=== PATIENT | male | born 1950 | race Two or more races ===

== ENCOUNTER 2019-08-14 22:50 | Inpatient (IN) | payer MEDICARE, OTHER ==
[~2019-08-14] VITALS: Ht 180.3 cm; Wt 85.2 kg
[2019-08-14] MEDS ORDERED: NITROGLYCERIN 0.4 MG SL TAB SL ONE (23:15)
[2019-08-14] MEDS ORDERED: MORPHINE SULFATE 4 MG/ML SYR/VIAL IV ONE (23:15)
[2019-08-14] MEDS ORDERED: ASPirin-EC 325mg tab PO ONE (23:15)
[2019-08-15 01:11] LABS: Basophils # (auto) 0.1 uL; Basophils % (auto) 0.6 % (0.0-2.0); Eosinophils # (auto) 0.1 uL; Eosinophils % (auto) 1.3 % (0.0-7.0); Hemoglobin 13.7 g/dL (13.5-17.5); Lymphocytes # (auto) 0.8 uL; Lymphocytes % (auto) 7.8 % (10.0-50.0); Mean Corpuscular Hemoglobin 31.8 pg (28.0-32.0); Mean Corpuscular Hgb Conc. 35.2 g/dL (32.0-36.0); Mean Corpuscular Volume 90.3 fL (80.0-100.0); Monocytes # (auto) 0.6 uL; Monocytes % (auto) 5.9 % (0.0-12.0); Neutrophils # (auto) 8.1 uL; Neutrophils % (auto) 84.4 % (37.0-80.0); Platelet Count (auto) 179 10^3/uL (140-450); Red Blood Cells 4.32 10^6/uL (4.5-5.90); White Blood Cell 9.6 10^3/uL (4.4-10.8)
[2019-08-15 01:18] LABS: Albumin 3.9 g/dL (3.4-5.0); Calcium 8.7 mg/dL (8.5-10.1); INR 0.96 (0.9-1.15); Magnesium 1.9 mg/dL (1.6-2.6); Partial Thromboplastin Time 25.8 sec (23.64-32.05)
[2019-08-15 01:21] LABS: BUN/Creatinine Ratio 18.3; Bilirubin, Total 0.3 mg/dL (0.2-1.0); Total Protein 8.2 g/dL (6.4-8.2)
[2019-08-15 02:33] LABS: Urine Bacteria NONE SEEN /hpf (None Seen); Urine Blood Negative /uL (Negative); Urine Specific Gravity 1.009 (1.001-1.035); Urine WBC 1 /hpf (0 - 3)
[2019-08-15] MEDS ORDERED: HEPARIN DRIP/D5W 100UNITS/ML 250 ML IV SCH (03:22)
[2019-08-15] MEDS ORDERED: HEPARIN SODIUM (PORCINE) 5000 UNITS/ML 1ML VIAL IV ONE ×3 (03:30)
[2019-08-15] MEDS ORDERED: HEPARIN DRIP/D5W 100UNITS/ML 250 ML IV ONE (03:39)
[2019-08-15] MEDS ORDERED: HYDROcodone-ACET 5/325MG TAB PO PRN (05:15)
[2019-08-15] MEDS ORDERED: DEXTROSE (50%) 50ML SYRG IV PRN (05:15)
[2019-08-15] MEDS ORDERED: ONDANSETRON HCL 4 MG/2 ML VIAL IV PRN (05:15)
[2019-08-15] MEDS ORDERED: MORPHINE SULF INJ 2 MG/ML SYRINGE 1ML IV PRN (05:15)
[2019-08-15] MEDS ORDERED: NITROGLYCERIN 0.4 MG SL TAB SL PRN (05:15)
[2019-08-15] MEDS ORDERED: ACETAMINOPHEN 500 MG TAB PO PRN (05:15)
[2019-08-15] MEDS: InsuLIN REG 1unit/0.01ml Soln (100units/ml) SC SCH ×4 (08:29→22:15)
[2019-08-15] MEDS: ACCU-CHEK COMFORT CURVE STRIP VI SCH ×4 (08:29→21:45)
[2019-08-15] MEDS ORDERED: CLOPIDOGREL BISULFATE 75 MG TAB PO ONE (09:15)
[2019-08-15] MEDS ORDERED: CLOPIDOGREL 300 MG TAB PO ONE (09:45)
[2019-08-15] MEDS ORDERED: fentaNYL CITRATE 100 MCG/2 ML VL ONE (10:00)
[2019-08-15] MEDS: ASPirin-EC 81 mg tab PO SCH (10:00)
[2019-08-15] MEDS ORDERED: ANGIOMAX 250 MG VIAL IV ONE (10:00)
[2019-08-15] MEDS ORDERED: MIDAZOLAM HCL 1MG/1ML-2 ML VIAL ONE (10:00)
[2019-08-15] MEDS ORDERED: SODIUM CHL 0.9% 50 ML ONE (10:00)
[2019-08-15] MEDS ORDERED: LIDOCAINE 2%HCL (LOCAL ANESTH.) INJ 20ML MDV ONE (10:00)
[2019-08-15] MEDS ORDERED: ATROPINE SULF 1 MG/10ml SYR ONE (10:02)
[2019-08-15] MEDS ORDERED: EPINEPHrine HCL 1 MG/10 ML SYRG ONE (10:02)
[2019-08-15] MEDS ORDERED: IOHEXOL 350 MG/ML 100ML IJ ONE (10:10)
[2019-08-15 10:15] LABS: Partial Thromboplastin Time 47.2 sec (23.64-32.05)
[2019-08-15] MEDS ORDERED: diphenhdrAMINE HCL 50 MG/1 ML VL IV ONE (10:15)
[2019-08-15] MEDS ORDERED: methylPREDNISolone SOD SUCC 125 MG/2 ML VL IV ONE (10:15)
[2019-08-15] MEDS ORDERED: methylPREDNISolone SOD SUCC 125 MG/2 ML VL ONE (10:53)
[2019-08-15] MEDS ORDERED: diphenhdrAMINE HCL 50 MG/1 ML VL ONE (10:54)
[2019-08-15] MEDS ORDERED: FAMOTIDINE (10MG/ML) 2ML VL IV ONE (10:54)
[2019-08-15] MEDS ORDERED: ONDANSETRON HCL 4 MG/2 ML VIAL ONE (10:58)
[2019-08-15] MEDS ORDERED: hydrALAZINE HCL 20 MG/ML VL ONE (11:53)
--- NOTE | 2019-08-15 13:08 | NUR ---
Opening Note Assumed care of patient, he is A & O x4, arrived s/p slabber, patient is laying flat at this time, patient educated regarding up time post procedure is 1430. He has a dressing to the right groin, it is clean, dry and intact, area surrounding dressing is soft no s/s of hematoma. Pulses to the R and L dorsalis pedis, 2+. Patient c/o chest pain 6/10 and headache 6/10. Renee catheter is in place, patent and draining. IV fluids NS at 50 ml/hr to the right forearm. Family is at bedside. POC discussed with patient. Bed is in low, locked position, call light within reach, bed alarm on. Will continue to monitor Q1h and PRN.
--- NOTE | 2019-08-15 13:10 | NUR ---
Patient cardio monitor Tele box 14, sinus rhythm at 74
[2019-08-15 13:27] VITALS: BP 142/73
--- NOTE | 2019-08-15 13:30 | NUR ---
Spoke to Victor Hugo Darnell Regarding patient chest pain s/p [facility], was ordered to give morphine for pain and daily meds, nitro patch, and monitor, if pain persists or gets worse to notify Dr. Martino. Patient has a dime size drop of blood to the R groin, circled, no s/s of hematoma, area surrounding insertion site is soft. Will continue to monitor Q1h and PRN.
[2019-08-15] MEDS: FAMOTIDINE 20 MG TAB PO SCH (14:26)
[2019-08-15] MEDS: LISINOPRIL 10 MG TAB PO SCH (14:28)
[2019-08-15] MEDS: METOPROLOL TARTRATE 25 MG TAB PO SCH ×2 (14:28→21:45)
[2019-08-15] MEDS: NITROGLYCERIN 0.4MG/HR TOPICAL PATCH TD SCH (14:30)
[2019-08-15] MEDS: MORPHINE SULF INJ 2 MG/ML SYRINGE 1ML IV PRN ×2 (14:31→21:44)
[2019-08-15] MEDS ORDERED: FLUO0.054 TOP (15:04)
[2019-08-15] MEDS ORDERED: [UNRECOGNIZED DRUG - CODE] OR (15:04)
[2019-08-15] MEDS ORDERED: B-COCAP4 OR (15:04)
[2019-08-15] MEDS ORDERED: ACE325T PO (15:04)
[2019-08-15] MEDS ORDERED: CLOT1CRE13 TOP (15:04)
[2019-08-15] MEDS ORDERED: DOCU100T15 PO (15:04)
[2019-08-15] MEDS ORDERED: METF-370 PO (15:04)
[2019-08-15] MEDS ORDERED: ARTISOL13 EACHEYE (15:04)
[2019-08-15] MEDS ORDERED: LAMO100T44 PO (15:04)
[2019-08-15] MEDS ORDERED: PRAV20TA3 PO (15:04)
[2019-08-15] MEDS ORDERED: LACTCAP20 OR (15:04)
[2019-08-15] MEDS ORDERED: MULTCAP45 PO (15:04)
[2019-08-15] MEDS ORDERED: ISOS30TA4 PO (15:04)
[2019-08-15] MEDS ORDERED: [UNRECOGNIZED DRUG - CODE] XX (15:04)
[2019-08-15] MEDS ORDERED: TRAM50TA2 PO (15:04)
[2019-08-15] MEDS ORDERED: AML5T PO (15:04)
[2019-08-15] MEDS ORDERED: CALC-509 PO (15:04)
[2019-08-15] MEDS ORDERED: FINA5TAB4 PO (15:04)
[2019-08-15] MEDS ORDERED: OMEG100062 PO (15:04)
[2019-08-15] MEDS ORDERED: FLUO0.05 EX (15:04)
[2019-08-15] MEDS ORDERED: METO25TA5 PO (15:04)
[2019-08-15] MEDS ORDERED: CARB6.5S27 EACH EAR (15:04)
[2019-08-15] MEDS ORDERED: LEVO137T3 PO (15:04)
[2019-08-15] MEDS ORDERED: FLUO-125 PO (15:04)
[2019-08-15] MEDS ORDERED: MODA200T50 PO (15:04)
[2019-08-15] MEDS ORDERED: TAMS0.4C36 PO (15:04)
[2019-08-15] MEDS ORDERED: CHOL20007 PO (15:04)
[2019-08-15 15:33] LABS: INR 1.06 (0.9-1.15); Partial Thromboplastin Time 38.8 sec (23.64-32.05)
--- NOTE | 2019-08-15 16:36 | NUR ---
Dr. Moody at bedside. Patient has a quarter size red blood to the right groin, area surrounding site is soft, no s/s of active bleeding or hematoma. Will continue to monitor Q1h and PRN.
[2019-08-15] MEDS ORDERED: LORazepam 2MG/ML-1ML VIAL IV PRN (16:45)
[2019-08-15 17:00] VITALS: BP 95/53
[2019-08-15 18:00] VITALS: BP 110/56
[2019-08-15] MEDS: TAMSULOSIN HYDROCHLORIDE 0.4 MG CAP PO SCH (18:05)
--- NOTE | 2019-08-15 19:47 | NUR ---
OPENING NOTES RECEIVED REPORT FROM DAY SHIFT NURSE, PT IS AWAKE, ALERT AND ORIENTATED X 4 WITH NO S/S OF DISTRESS NOR SOB. NO S/S OF PAIN. RIGHT GROIN INCISION IS INTACT WITH MINIMAL DISCHARGE OF BLOOD, AREA MARKED. BED IS IN LOWEST POSITION AND SIDE RAILS UP X2. BED BRAKES ARE LOCKED AND CALL LIGHT IS WITH IN REACH. HOB IS 30 DEGREES. WILL MONITOR PATIENT Q 1HR. Addendum: 08/15/19 at 1956 by MICHAEL GAVIN RN RN RIGHT GROIN INCISION SOFT TO TOUCH WITH MINOR BRUISING.
--- NOTE | 2019-08-15 19:57 | NUR ---
BIPAP PT HAS OWN CIPAP/BIPAP MACHINE AND CLAIMS TO USE IT EVERY NIGHT. WILL INFORM HOSPITALIST.
[2019-08-15 20:00] VITALS: BP 142/65
--- NOTE | 2019-08-15 20:11 | NUR ---
MD MD BERNABE CALLED BACK AND ORDERED CPAP.
[2019-08-15] MEDS: lamoTRIgine 100 MG TAB PO SCH (21:44)
[2019-08-15 22:00] VITALS: BP 109/54
[2019-08-15] MEDS ORDERED: ATORVASTATIN 20 MG TAB PO SCH (22:00)
[2019-08-16 00:47] VITALS: BP 109/54
[2019-08-16 05:00] VITALS: BP 129/65
--- NOTE | 2019-08-16 06:32 | NUR ---
RT GROIN INCISION RIGHT GROIN INCISION SITE STILL EXHIBITING MINOR DISCHARGE, LAID PATIENT FLAT, HELD DOWN ON INCISION SITE FOR 5 MINUTES WITH MODERATE PRESSURE. AREA OF DRAINAGE WAS MARKED.
[2019-08-16] MEDS: ACCU-CHEK COMFORT CURVE STRIP VI SCH ×3 (06:37→18:18)
[2019-08-16] MEDS: InsuLIN REG 1unit/0.01ml Soln (100units/ml) SC SCH ×3 (06:39→18:18)
--- NOTE | 2019-08-16 07:27 | NUR ---
CLOSING NOTES ENDORSED CARE TO DAY SHIFT NURSEYUSUF.
[2019-08-16 08:06] LABS: Basophils # (auto) 0.1 uL; Basophils % (auto) 0.6 % (0.0-2.0); Eosinophils # (auto) 0.1 uL; Eosinophils % (auto) 0.7 % (0.0-7.0); Hematocrit 38.8 % (41.0-53.0); Hemoglobin 13.1 g/dL (13.5-17.5); Lymphocytes # (auto) 1.9 uL; Lymphocytes % (auto) 14.4 % (10.0-50.0); Mean Corpuscular Hemoglobin 31.1 pg (28.0-32.0); Mean Corpuscular Hgb Conc. 33.8 g/dL (32.0-36.0); Monocytes # (auto) 1.3 uL; Monocytes % (auto) 10.1 % (0.0-12.0); Neutrophils # (auto) 9.7 uL; Neutrophils % (auto) 74.2 % (37.0-80.0); Platelet Count (auto) 180 10^3/uL (140-450); Red Blood Cells 4.22 10^6/uL (4.5-5.90); Red Cell Distribution Width 14.2 % (11.8-14.3)
[2019-08-16 08:23] LABS: INR 0.96 (0.9-1.15)
[2019-08-16 08:27] LABS: BUN/Creatinine Ratio 22.4; Calcium 8.9 mg/dL (8.5-10.1)
[2019-08-16 09:00] VITALS: BP 127/60
[2019-08-16] MEDS: ASPirin-EC 81 mg tab PO SCH (09:21)
[2019-08-16] MEDS: lamoTRIgine 100 MG TAB PO SCH (09:21)
[2019-08-16] MEDS: FAMOTIDINE 20 MG TAB PO SCH (09:21)
[2019-08-16] MEDS: LISINOPRIL 10 MG TAB PO SCH (09:22)
[2019-08-16] MEDS: METOPROLOL TARTRATE 25 MG TAB PO SCH (09:22)
[2019-08-16] MEDS: NITROGLYCERIN 0.4MG/HR TOPICAL PATCH TD SCH (09:22)
[2019-08-16] MEDS ORDERED: CLOPIDOGREL BISULFATE 75 MG TAB PO SCH (10:00)
--- NOTE | 2019-08-16 10:10 | NUR ---
Opening Shift Note Assumed care of patient, awake and alert. Respiratory even and unlabored. Skin is warm and dry to touch. No S/S of distress/SOB or pain. No s/s of hyperglycemia or hypoglycemia noted. Instructed on POC and to call for assist PRN, will continue to monitor for changes Q1hr and PRN.
[2019-08-16 13:00] VITALS: BP 131/57
--- NOTE | 2019-08-16 14:00 | NUR ---
Dr. Freeman made aware of trop 7.9.
--- NOTE | 2019-08-16 14:45 | NUR ---
Ceron catheter dc'd Order to discontinue ceron catheter. Ceron dc'd with clean technique following deflation of balloon. Patient tolerated well with no complaints of pain. Continue care.
--- NOTE | 2019-08-16 15:35 | NUR ---
Patient reported urinated yellow urine.
[2019-08-16 15:38] VITALS: BP 131/57
[2019-08-16] MEDS: TAMSULOSIN HYDROCHLORIDE 0.4 MG CAP PO SCH (18:00)
--- NOTE | 2019-08-16 18:19 | NUR ---
Discharge instructions given as ordered. Encourage to follow up [facility] as [facility]. All questions and concerns addressed. Patient verbalized understanding. Medication reconciliation form completed and copy given to patient. IV removed with catheter intact, pressure dressing applied, ceron catheter removed. Telemetry unit returned to ICU. Patient taken to vehicle via wheelchair with all personal belongings, accompanied by staff and family member. No distress noted at time of departure.
== END 2019-08-16 18:20 | disposition home or self-care (01) | DRG 246 ==
LOC: EDBD 22:50 → ER 22:57 → OVERFLOW 22:58 → TELE-EAST 08-15 13:19
PROVIDERS: ADMIT Nurse Practitioner Acute Care; ATTEND Internal Medicine
PROC: 4A023N7 Measurement of Cardiac Sampling and Pressure, Left Heart, Percutaneous Approach (ICD-10-PCS; principal; 2019-08-15)
PROC: 027034Z Dilation of Coronary Artery, One Artery with Drug-eluting Intraluminal Device, Percutaneous Approach (ICD-10-PCS; 2019-08-15)
PROC: B2111ZZ Fluoroscopy of Multiple Coronary Arteries using Low Osmolar Contrast (ICD-10-PCS; 2019-08-15)
PROC: B2151ZZ Fluoroscopy of Left Heart using Low Osmolar Contrast (ICD-10-PCS; 2019-08-15)
PROC: B2181ZZ Fluoroscopy of Left Internal Mammary Bypass Graft using Low Osmolar Contrast (ICD-10-PCS; 2019-08-15)
PROC: B2121ZZ Fluoroscopy of Single Coronary Artery Bypass Graft using Low Osmolar Contrast (ICD-10-PCS; 2019-08-15)
PROC: B240ZZ3 Ultrasonography of Single Coronary Artery, Intravascular (ICD-10-PCS; 2019-08-15)
DX: T82.898A Other specified complication of vascular prosthetic devices, implants and grafts, initial encounter (principal); I21.4 Non-ST elevation (NSTEMI) myocardial infarction; E87.1 Hypo-osmolality and hyponatremia; I10 Essential (primary) hypertension; E03.9 Hypothyroidism, unspecified; E78.00 Pure hypercholesterolemia, unspecified; G40.909 Epilepsy, unspecified, not intractable, without status epilepticus; E11.21 Type 2 diabetes mellitus with diabetic nephropathy; E78.5 Hyperlipidemia, unspecified; G47.33 Obstructive sleep apnea (adult) (pediatric); I25.10 Atherosclerotic heart disease of native coronary artery without angina pectoris; N40.0 Benign prostatic hyperplasia without lower urinary tract symptoms; Z79.84 Long term (current) use of oral hypoglycemic drugs; Z87.820 Personal history of traumatic brain injury; Z88.3 Allergy status to other anti-infective agents; Z91.041 Radiographic dye allergy status; Z95.1 Presence of aortocoronary bypass graft; Y83.8 Other surgical procedures as the cause of abnormal reaction of the patient, or of later complication, without mention of misadventure at the time of the procedure; Y92.89 Other specified places as the place of occurrence of the external cause
CPT/HCPCS: 36415; 71045; 80048; 80053; 81001; 82962; 83036; 83735; 83880; 84443; 84484; 85025; 85610; 85730; 86141; 86850; 86900; 86901; 92928; 92978; 93306; 93458; 94660; 96361; 96365; 96375; 99152; 99153; C1874; C1887; G0378; J1815; J2250; J2405; J3490

== ENCOUNTER 2019-08-20 15:05 | Emergency (ER) | payer OTHER ==
[~2019-08-20] VITALS: Ht 177.8 cm; Wt 81.6 kg
[~2019-08-20 15:05] MED LIST: ARTISOL13 EACHEYE; CALC-509 PO; CLOT1CRE13 TOP; DOCU100T15 PO; FINA5TAB4 PO; FLUO-125 PO; FLUO0.05 EX; FLUO0.054 TOP; ISOS30TA4 PO; LACTCAP20 OR; LAMO100T44 PO; LEVO137T3 PO; METF-370 PO; METO25TA5 PO; MULTCAP45 PO; OMEG100062 PO; PRAV20TA3 PO; TAMS0.4C36 PO; TRAM50TA2 PO; [UNRECOGNIZED DRUG - CODE] XX
[2019-08-20 16:10] LABS: Basophils # (auto) 0 uL; Basophils % (auto) 0.5 % (0.0-2.0); Eosinophils # (auto) 0.4 uL; Eosinophils % (auto) 4.8 % (0.0-7.0); Hematocrit 38.9 % (41.0-53.0); Hemoglobin 13.2 g/dL (13.5-17.5); Lymphocytes # (auto) 1.1 uL; Lymphocytes % (auto) 14.5 % (10.0-50.0); Mean Corpuscular Hemoglobin 31.8 pg (28.0-32.0); Mean Corpuscular Hgb Conc. 33.9 g/dL (32.0-36.0); Monocytes # (auto) 0.8 uL; Neutrophils # (auto) 5.3 uL; Neutrophils % (auto) 70.2 % (37.0-80.0); Platelet Count (auto) 176 10^3/uL (140-450); Red Blood Cells 4.14 10^6/uL (4.5-5.90); White Blood Cell 7.6 10^3/uL (4.4-10.8)
[2019-08-20 16:13] LABS: Albumin 3.7 g/dL (3.4-5.0); Calcium 9.1 mg/dL (8.5-10.1); Potassium 4.1 mmol/L (3.5-5.1)
[2019-08-20 16:19] LABS: BUN/Creatinine Ratio 13.8; Bilirubin, Total 0.3 mg/dL (0.2-1.0); Total Protein 8.5 g/dL (6.4-8.2)
[2019-08-20 18:00] VITALS: BP 106/84
[2019-08-20 18:10] LABS: Urine Bacteria NONE SEEN /hpf (None Seen); Urine Blood 1+ /uL (Negative); Urine WBC <1 /hpf (0 - 3)
== END 2019-08-20 19:48 | disposition home or self-care (01) ==
LOC: ER 15:05
DX: R07.89 Other chest pain (principal); E11.9 Type 2 diabetes mellitus without complications; I10 Essential (primary) hypertension; I25.2 Old myocardial infarction; Z86.73 Personal history of transient ischemic attack (TIA), and cerebral infarction without residual deficits; Z98.61 Coronary angioplasty status; Z79.899 Other long term (current) drug therapy; Z91.041 Radiographic dye allergy status
CPT/HCPCS: 36415; 71045; 80053; 81001; 82962; 84484; 85025; 93005

== ENCOUNTER 2025-06-11 21:15 | Emergency (ER) | payer OTHER ==
[~2025-06-11] VITALS: Ht 177.8 cm; Wt 80.1 kg
[~2025-06-11 21:15] MED LIST changes: -CLOT1CRE13 TOP; +CLOT1CRE51 TOP; +ISOS1TAB28 PO; -ISOS30TA4 PO; -TAMS0.4C36 PO; +TAMS0.4C39 PO
[2025-06-11 22:30] LABS: Hematocrit 28.6 % (41.0-53.0); Hemoglobin 9.7 g/dL (13.5-17.5); Mean Corpuscular Hemoglobin 29.5 pg (28.0-32.0); Mean Corpuscular Volume 86.6 fL (80.0-100.0); Nucleated Red Blood Cells % 0.0 %
--- NOTE | 2025-06-11 22:30 | ED.PDOC ---
Epistaxis- HPI HPI Comments A 74 year-old male, with a PMHX of CAD, HTN, DM, and SD, presents to the ED with a chief complaint of nosebleed with associated blood clots and headache as of X2 days ago. Patient reports approx. 22 blood blots coming up from throat and nose mostly from right side. Patient states he is currently on Aspirin, Metformin, a nd Tramadol specifically. Patient has no further complaints at this time and otherwise denies further associated symptoms of dizziness, N/V, blurred vision, fever, or chills. Chief Complaint: Nose Bleed Time Seen by MD: 21:58 Primary Care Provider: JANAK Reviewed Notes: Medications, Allergies Allergies: Coded Allergies: Iodine (Verified Adverse Reaction, Severe, 08/15/19) PT HAD EPISODE OF ANAPHYLAXIS LEADING TO CARDIAC ARREST IN 2002 Home Meds Reported Medications Witch Becky (Witch Becky) Ext, 1 XX, EXT 08/15/19 Lactobacillus (Lacto-Pectin) Cap, 1 OR, CAP 08/15/19 Clotrimazole (Clotrimazole) 1 % Cre, 1 APPLIC TOP Q12HR for 30 Days, APPLIC 08/15/19 Levothyroxine Sodium (Levothyroxine Sodium) 137 Mcg Tab, 137 MCG PO QAM for 30 Days 08/15/19 Finasteride (Finasteride) 5 Mg Tab, 5 MG PO DAILY for 30 Days, MG 08/15/19 Fluoxetine Hcl (Fluoxetine Hcl) 20 Mg Cap, 20 MG PO DAILY for 30 Days, MG 08/15/19 Fluocinonide (Fluocinonide) 0.05 % Oin, 1 APPLIC TOP BID, #15 GRAMS 3 Refills 08/15/19 Fluocinonide (Fluocinonide) 0.05 % Cre, 0.05 % EX, CRE 08/15/19 Tramadol Hcl (Tramadol Hcl) 50 Mg Tab, 50 MG PO Q6HP PRN for MILD PAIN OR TEMP>100.4, MG 08/15/19 Docusate Sodium (Docusate Sodium) 100 Mg Tab, 250 MG PO DAILYP PRN for FOR CONSTIPATION, MG 08/15/19 Draper-3 Fatty Acids (Fish Oil) 1,000 Mg Cap, 1000 MG PO, CAP 08/15/19 Lamotrigine (Lamotrigine) 100 Mg Tab, 1 TAB PO BID, #60 TAB 08/15/19 Tamsulosin Hcl (Tamsulosin Hcl) 0.4 Mg Cap, 0.4 MG PO QPM for 30 Days, MG 08/15/19 Pravastatin Sodium (PRAVACHOL TABLET) 20 Mg Tb, 40 MG PO, TAB 08/15/19 Multiple Vitamin (Multivitamins) Cap, 1 CAP PO DAILY, #30 CAP 3 Refills 08/15/19 Calcium Carbonate-Cholecalcife (Calcium 500 + D 500-200 mg-Unit) 1 Tab Tab, 1 TAB PO, TAB 08/15/19 Artificial Tear Solution (ARTIFICIAL TEARS) Tears Grisel, 1 DROP EACHEYE QID, #15 ML 5 Refills 08/15/19 Metoprolol Tartrate (Metoprolol Tartrate) 25 Mg Tab, 25 MG PO for 30 Days, MG 08/15/19 Isosorbide Mononitrate (Isosorbide Mononitrate Er) 30 Mg Tab, 30 MG PO for 30 Days, MG 08/15/19 Metformin Hydrochloride (Metformin Hcl) 500 Mg Tab, 1000 MG PO DAILY for 30 Days, MG 08/15/19 Information Source: Patient Mode of Arrival: Ambulatory Timing: Days Duration: Since onset Location: Both narises Mechanism: Spontaneous onset Nose: Intranasal/Septum: Blood Past Medical History PAST MEDICAL HISTORY: CAD, DM, HTN, SD, Seizures Surgical History: CABG, PTCA Family History Family History: Reviewed,noncontributory to illness Social History Smoker: Non-Smoker Alcohol: Denies ETOH Use Drugs: Denies Drug Use Lives In: Home Constitutional: denies: chills, diaphoresis, fatigue, fever, malaise, sweats, weakness, others EENTM: reports: nose bleeding; denies: blurred vision, double vision, ear bleeding, ear discharge, ear drainage, ear pain, ear ringing, eye pain, eye redness, hearing loss, mouth pain, mouth swelling, nasal discharge, nose congestion, nose pain, photophobia, tearing, throat pain, throat swelling, voice changes, others Respiratory: denies: cough, hemoptysis, orthopnea, SOB at rest, shortness of breath, SOB with excertion, stridor, wheezing, others Cardiovascular: denies: chest pain, dizzy spells, diaphoresis, Dyspnea on exertion, edema, irregular heart beat, left arm pain, lightheadedness, palpitations, PND, syncope, others Gastrointestinal: denies: abdomen distended, abdominal pain, blood streaked bowels, constipated, diarrhea, dysphagia, difficulty swallowing, hematemesis, melena, nausea, poor appetite, poor fluid intake, rectal bleeding, rectal pain, vomiting, others Genitourinary: denies: burning, dysuria, flank pain, frequency, hematuria, incontinence, penile discharge, penile sore, pain, testicle pain, testicle swelling, urgency, others Neurological: denies: dizziness, fainting, headache, left sided numbness, left sided weakness, numbness, paresthesia, pre-existing deficit, right sided numbness, right sided weakness, seizure, speech problems, tingling, tremors, w eakness, others Musculoskeletal: denies: back pain, gout, joint pain, joint swelling, muscle pain, muscle stiffness, neck pain, others Integumetry: denies: bruises, change in color, change in hair/nails, dryness, laceration, lesions, lumps, rash, wounds, others Allergic/Immunocompromised: denies: Difficulty Healing, Frequent Infections, Hives, Itching, others Hematologic/Lymphatic: denies: anemia, blood clots, easy bleeding, easy bruising, swollen glands, others Endocrine: denies: excessive hunger, excessive sweating, excessive thirst, excessive urination, flushing, intolerance to cold, intolerance to heat, unexplained weight gain, unexplained weight loss, others Psychiatric: denies: anxiety, bipolar disorder, depression, hopeless, panic disorder, schizophrenia, sleepless, suicidal, others All Other Systems: Reviewed and Negative Physical Exam General Appearance: Mild Distress, Normal HEENT: Normal ENT Inspection, Pharynx Normal, TMs Normal Neck: Full Range of Motion, Non-Tender, Normal, Normal Inspection Respiratory: Chest Non-Tender, Lungs Clear, No Accessory Muscle Use, No Respiratory Distress, Normal Breath Sounds Cardiovascular: No Edema, No JVD, No Murmur, No Gallop, Normal Peripheral Pulses, Regular Rate/Rhythm Breast Exam: Deferred Gastrointestinal: No Organomegaly, Non Tender, No Pulsatile Mass, Normal Bowel Sounds, Soft Genitalia: Deferred Pelvic: Deferred Rectal: Deferred Extremities: No calf tenderness, Normal capillary refill, Normal inspection, Normal range of motion, Non-tender, No pedal edema Musculoskeletal : Apperance: Normal Neurologic: Alert, loss control technician II-XII nml as Tested, No Motor Deficits, Normal Affect, Normal Mood, No Sensory Deficits Cerebellar Function: Normal Reflexes: Normal Skin: Dry, Normal Color, Warm Lymphatic: No Adenopathy Was a procedure done? Was a procedure done?: No Differential Diagnosis (NSB) Differential Diagnosis: Anterior Nasal Bleed, Posterior Nasal Bleed, Hypertension X-Ray, Labs, Meds, VS Vital Signs Date Time Temp Pulse Resp B/P (MAP) Pulse Ox O2 Delivery O2 Flow Rate FiO2 06/11/25 22:38 Room Air* 0 21 06/11/25 22:38 98.0 78 16 145/55 (85) 96 98.0 06/11/25 21:40 97.7 75 14 155/64 (94) 98 97.7 Lab Test 06/11/25 23:34 06/11/25 23:01 06/11/25 22:56 06/11/25 22:05 Range/Units POC Glucose 287 H 313 H 353 H 70-106 mg/dl White Blood Count 10.7 4.4-10.8 10^3/uL Red Blood Count 3.30 L 4.5-5.90 10^6/uL Hemoglobin 9.7 L 13.5-17.5 g/dL Hematocrit 28.6 L 41.0-53.0 % Mean Corpuscular Volume 86.6 80.0-100.0 fL Mean Corpuscular Hemoglobin 29.5 28.0-32.0 pg Mean Corpuscular Hemoglobin Concent 34.1 32.0-36.0 g/dL Red Cell Distribution Width 14.8 H 11.8-14.3 % Platelet Count 220 140-450 10^3/uL Mean Platelet Volume 9.5 6.9-10.8 fL Neutrophils (%) (Auto) 92.5 H 37.0-80.0 % Lymphocytes (%) (Auto) 4.9 L 10.0-50.0 % Monocytes (%) (Auto) 2.5 0.0-12.0 % Eosinophils (%) (Auto) 0.0 0.0-7.0 % Basophils (%) (Auto) 0.1 0.0-2.0 % Neutrophils # (Auto) 9.9 H 1.6-8.6 10 ^3/uL Lymphocytes # (Auto) 0.5 0.4-5.4 10 ^3/uL Monocytes # (Auto) 0.3 0-1.3 10 ^3/uL Eosinophils # (Auto) 0 0-0.8 10 ^3/uL Basophils # (Auto) 0 0-0.2 10 ^3/uL Nucleated Red Blood Cells 0.0 % Prothrombin Time 11.2 9.3-11.8 sec Prothrombin Time INR 1.06 0.9-1.15 Activated Partial Thromboplast Time 23.3 L 24.5-34.5 SEC Sodium Level 133 L 136-145 mmol/L Potassium Level 4.9 3.5-5.1 mmol/L Chloride Level 99 98-107 mmol/L Carbon Dioxide Level 23 20-31 mmol/L Anion Gap 11 5-15 Blood Urea Nitrogen 42 H 9-23 mg/dL Creatinine 1.20 0.700-1.30 mg/dL Glomerular Filtration Rate Calc 63 >90 mL/min BUN/Creatinine Ratio 35.0 H 10.0-20.0 Serum Glucose 405 *H 74-106 mg/dL Calcium Level 9.4 8.7-10.4 mg/dL Test 06/11/25 21:52 Range/Units POC Glucose 398 H 70-106 mg/dl Current Medications Medications (Trade) Dose Ordered Sig/Drew Route Start Time Stop Time Status Last Admin Sodium Chloride 1,000 ml @ 1,000 mls/hr Q1H ONCE IVB 06/11/25 22:00 06/11/25 22:59 DC 06/11/25 22:40 Insulin Human Regular (InsuLIN R) 2 units ONCE ONCE SC 06/11/25 22:00 06/11/25 22:01 DC 06/11/25 23:08 Insulin Human Regular (InsuLIN R) 2 units ONCE ONCE SC 06/11/25 23:15 06/11/25 23:16 DC 06/11/25 23:43 Time of 1ST Reevaluation: 22:28 Reevaluation 1ST: Unchanged Patient Education/Counseling: Diagnosis, Treatment Family Education/Counseling: Diagnosis, Treatment Departure 1 Departure Time of Disposition: 23:30 Impression: Primary Impression: Epistaxis Additional Impression: Type 2 diabetes mellitus with hyperglycemia Disposition: 01 HOME / SELF CARE / HOMELESS Condition: Stable Discharged With: Self, Computer Tester Critical Care Note Critical Care Time?: No Stability Stability form required: No Heart Score Heart Score: Heart Score Response (Comments) Value History N/A 0 EKG N/A 0 Age N/A 0 Risk Factors N/A 0 Troponin N/A 0 Total 0 I personally scribed for TIANNA PROCTOR MD ([email or web address]) on 06/11/25 at 22:30. Electronically submitted by Magalis Kruger ([email or web address]). TIANNA PROCTOR MD Jun 11, 2025 22:30
[2025-06-11 22:34] LABS: Chloride 99 mmol/L (98-107); Potassium 4.9 mmol/L (3.5-5.1)
[2025-06-11 22:35] LABS: Anion Gap 11 (5-15); Calcium 9.4 mg/dL (8.7-10.4); Carbon Dioxide 23 mmol/L (20-31)
[2025-06-11 22:36] LABS: Sodium 133 mmol/L (136-145)
[2025-06-11 22:38] VITALS: BP 145/55; PULSE 78; RESP 16; TEMP 98; O2SAT 96
[2025-06-11 22:40] LABS: BUN/Creatinine Ratio 35.0 (10.0-20.0)
[2025-06-11] MEDS: SODIUM CHLORIDE 0.9% 1,000 ML IVB ONE (22:40)
[2025-06-11 22:43] LABS: Blood Urea Nitrogen 42 mg/dL (9-23)
[2025-06-11 22:44] LABS: Glucose 405 mg/dL (74-106)
[2025-06-11 22:45] LABS: INR 1.06 (0.9-1.15); Partial Thromboplastin Time 23.3 SEC (24.5-34.5); Prothrombin Time 11.2 sec (9.3-11.8)
[2025-06-11] MEDS: InsuLIN REG 1unit/0.01ml Soln (100units/ml) SC ONE ×2 (23:08→23:43)
== END 2025-06-11 23:49 | disposition home or self-care (01) ==
LOC: ER 21:15
DX: R04.0 Epistaxis (principal); E11.65 Type 2 diabetes mellitus with hyperglycemia; I10 Essential (primary) hypertension; Z79.82 Long term (current) use of aspirin; Z79.84 Long term (current) use of oral hypoglycemic drugs; Z79.899 Other long term (current) drug therapy; Z95.1 Presence of aortocoronary bypass graft; Z88.8 Allergy status to other drugs, medicaments and biological substances
CPT/HCPCS: 36415; 80048; 82947; 85025; 85610; 85730; 96360; 99284; J1815; J7030; 82962

== ENCOUNTER 2025-07-01 15:15 | Inpatient (IN) | payer OTHER ==
[~2025-07-01] VITALS: Ht 180.3 cm; Wt 79.0 kg
--- NOTE | 2025-07-01 16:08 | ED.PDOC ---
History of Present Illness HPI Comments HPI: This is a 74 year old male presenting to the ED with chief complaint of abnormal labs. Patient reports that he has been experiencing generalized weakness, dizziness, and imbalance for the past 2 days, but had received a text yesterday [facility]. Patient relays that recent blood work had came back showing a Hgb of 7.9, being advised to come into the ED for further evaluation. Patient states his stools have been normal in color and he has never received a transfusion before. Patient notes that he drove himself to the ED today. Patient denies any chest pain, SOB, N/V, abdominal pain, or melena. Denies bleeding from anywhere. Patient is not on blood thinners except Plavix. Initial Vitals BP: 160/81 HR: 69 RR: 20 O2: 99% Temp: 97.9F Past Medical History: CAD, HTN, DM, ID, HLD Past Surgical History: CABG, PTCA Social History: Denies ETOH, smoking, and drug use. Medications: Plavix, Amlodipine Allergies: Iodine HPI: Poor Historian. REVIEW OF SYSTEMS: CONSTITUTIONAL: Denies acute: fever, diaphoresis, chills, HEAD: Denies acute: headache, photophobia Eyes: Denies acute: Double vision, vision loss, eye pain, eye discharge. EARS: Denies acute: tinnitus, hearing loss, ear discharge, ear pain, THROAT: Denies acute: sore throat, swelling, difficulty swallowing , pain with swallowin g, change in voice. NECK: Denies acute: neck pain, neck swelling, stiff neck. HEART: Denies acute : chest pain, palpitations, LUNGS: Denies acute: SOB, wheezing, cough, hemoptysis ABDOMEN: Denies acute: abdominal pain, Nausea, Vomiting, diarrhea, melena , hematemesis, hematochezia SKIN: Denies acute: rash, redness, lesions, itchiness. EXTREMITIES: Denies acute: calf pain, numbness, tingling, weakness, denies pain in extremity. Denies acute: Low back pain. Neuro: Denies acute: focal neurological deficit, motor or sensory focal neurological deficit, tremors, seizure like activity, confusion, change in mental status, loss of bowel or bladder function, cauda equina like symptoms. : Denies acute: dysuria, hematuria, flank pain, increase in urinary frequency. PSYCH: Denies acute: hallucination, suicidal ideation, homicidal ideation. PHYSICAL EXAM: General: -----mild--acute distress, awake and alert. Head: normocephalic, atraumatic. Neck: supple, trachea is midline, no swelling. Throat: Normal phonation. Eyes:, no erythema, no purulent discharge, no proptosis, no icterus. Heart: regular rate, regular rhythm, no significant murmur appreciated. Lungs: no apparent respiratory distress, Able to speak in full sentences. No wheezing, no rhonchi, no crackles. No stridors Clear to auscultation bilaterally. Abdomen: non tender to palpation, non distended, soft, no guarding, no rebound, + bowel sounds. Neuro: Awake, Alert, oriented to name, self, situation, follows commands GCS=15. Speech is normal. Skin: no petechia, no purpura, no cyanosis, noted-pale, not jaundice. Lower extremities: --no - Pitting edema no deformity, no focal swelling, no calf TTP. Makes eye contact. moves all four extremities. Face: no apparent facial droop. Ambulating in the ED independently. ED COURSE: DISCLAIMER: This medical document was created using an electronic medical record system with voice recognition software and computerized dictation system. Although this document has been carefully reviewed, there might still be some phonetic and typographical errors. Occasional wrong-word or "sound-alike" substitutions may have occurred due to the inherent limitations of voice recognition software. These areas are purely typographical due to imperfections of the software programs and do not reflect any compromise in the patient's medical care. Please read the chart carefully and recognize, using context, where these substitutions have occurred. Chief Complaint: Abnormal LAB's Time Seen by MD: 16:01 Primary Care Provider: JANAK Reviewed Notes: Medications, Allergies Allergies: Coded Allergies: Iodine (Verified Adverse Reaction, Severe, 08/15/19) PT HAD EPISODE OF ANAPHYLAXIS LEADING TO CARDIAC ARREST IN 2002 Uncoded Allergies: CHERRIES (Allergy, Unknown, 07/01/25) Home Meds Reported Medications Witch Becky (Witch Becky) Ext, 1 XX, EXT 08/15/19 Lactobacillus (Lacto-Pectin) Cap, 1 OR, CAP 08/15/19 Clotrimazole (Clotrimazole) 1 % Cre, 1 APPLIC TOP Q12HR for 30 Days, APPLIC 08/15/19 Levothyroxine Sodium (Levothyroxine Sodium) 137 Mcg Tab, 137 MCG PO QAM for 30 Days 08/15/19 Finasteride (Finasteride) 5 Mg Tab, 5 MG PO DAILY for 30 Days, MG 08/15/19 Fluoxetine Hcl (Fluoxetine Hcl) 20 Mg Cap, 20 MG PO DAILY for 30 Days, MG 08/15/19 Fluocinonide (Fluocinonide) 0.05 % Oin, 1 APPLIC TOP BID, #15 GRAMS 3 Refills 08/15/19 Fluocinonide (Fluocinonide) 0.05 % Cre, 0.05 % EX, CRE 08/15/19 Tramadol Hcl (Tramadol Hcl) 50 Mg Tab, 50 MG PO Q6HP PRN for MILD PAIN OR TEMP>100.4, MG 08/15/19 Docusate Sodium (Docusate Sodium) 100 Mg Tab, 250 MG PO DAILYP PRN for FOR CONSTIPATION, MG 08/15/19 Kincaid-3 Fatty Acids (Fish Oil) 1,000 Mg Cap, 1000 MG PO, CAP 08/15/19 Lamotrigine (Lamotrigine) 100 Mg Tab, 1 TAB PO BID, #60 TAB 08/15/19 Tamsulosin Hcl (Tamsulosin Hcl) 0.4 Mg Cap, 0.4 MG PO QPM for 30 Days, MG 08/15/19 Pravastatin Sodium (PRAVACHOL TABLET) 20 Mg Tb, 40 MG PO, TAB 08/15/19 Multiple Vitamin (Multivitamins) Cap, 1 CAP PO DAILY, #30 CAP 3 Refills 08/15/19 Calcium Carbonate-Cholecalcife (Calcium 500 + D 500-200 mg-Unit) 1 Tab Tab, 1 TAB PO, TAB 08/15/19 Artificial Tear Solution (ARTIFICIAL TEARS) Tears Grisel, 1 DROP EACHEYE QID, #15 ML 5 Refills 08/15/19 Metoprolol Tartrate (Metoprolol Tartrate) 25 Mg Tab, 25 MG PO for 30 Days, MG 08/15/19 Isosorbide Mononitrate (Isosorbide Mononitrate Er) 30 Mg Tab, 30 MG PO for 30 Days, MG 08/15/19 Metformin Hydrochloride (Metformin Hcl) 500 Mg Tab, 1000 MG PO DAILY for 30 Da ys, MG 08/15/19 Information Source: Patient Mode of Arrival: Ambulatory Prehospital treatment: None Was a procedure done? Was a procedure done?: No X-Ray, Labs, Meds, VS Vital Signs Date Time Temp Pulse Resp B/P (MAP) Pulse Ox O2 Delivery O2 Flow Rate FiO2 07/01/25 15:34 69 07/01/25 15:16 97.9 69 20 160/81 99 97.9 Lab Test 07/01/25 16:07 Range/Units White Blood Count 6.2 4.4-10.8 10^3/uL Red Blood Count 2.88 L 4.5-5.90 10^6/uL Hemoglobin 8.1 L 13.5-17.5 g/dL Hematocrit 24.2 L 41.0-53.0 % Mean Corpuscular Volume 84.1 80.0-100.0 fL Mean Corpuscular Hemoglobin 28.1 28.0-32.0 pg Mean Corpuscular Hemoglobin Concent 33.5 32.0-36.0 g/dL Red Cell Distribution Width 15.4 H 11.8-14.3 % Platelet Count 264 140-450 10^3/uL Mean Platelet Volume 8.6 6.9-10.8 fL Neutrophils (%) (Auto) 69.4 37.0-80.0 % Lymphocytes (%) (Auto) 14.9 10.0-50.0 % Monocytes (%) (Auto) 11.4 0.0-12.0 % Eosinophils (%) (Auto) 3.4 0.0-7.0 % Basophils (%) (Auto) 0.9 0.0-2.0 % Neutrophils # (Auto) 4.3 1.6-8.6 10 ^3/uL Lymphocytes # (Auto) 0.9 0.4-5.4 10 ^3/uL Monocytes # (Auto) 0.7 0-1.3 10 ^3/uL Eosinophils # (Auto) 0.2 0-0.8 10 ^3/uL Basophils # (Auto) 0.1 0-0.2 10 ^3/uL Nucleated Red Blood Cells 0.1 % Sodium Level Pending Potassium Level Pending Chloride Level Pending Carbon Dioxide Level Pending Anion Gap Pending Blood Urea Nitrogen Pending Creatinine Pending Glomerular Filtration Rate Calc Pending BUN/Creatinine Ratio Pending Serum Glucose Pending Lactic Acid Level Pending Calcium Level Pending Total Bilirubin Pending Aspartate Amino Transferase (AST) Pending Alanine Aminotransferase (ALT) Pending Alkaline Phosphatase Pending Troponin I High Sensitivity Pending B-Type Natriuretic Peptide Pending Total Protein Pending Albumin Pending Time of 1ST Reevaluation: 17:00 Reevaluation 1ST: Unchanged Patient Education/Counseling: Diagnosis, Treatment Family Education/Counseling: No Family Present Departure 1 Departure Time of Disposition: 16:19 Impression: Primary Impression: Symptomatic anemia Additional Impressions: Inverted T wave Abnormal EKG Dizzy spells Disposition: ADMITTED INPATIENT Admit to: Tele Condition: Guarded Discharged With: Self Critical Care Note Critical Care Time?: No I personally scribed for NORMA KAUFMAN DO ([email or web address]) on 07/01/25 at 16:07. Electronically submitted by Aditya Trivedi ([email or web address]). NORMA KAUFMAN DO Jul 01, 2025 16:07
[2025-07-01 16:29] LABS: Hematocrit 24.2 % (41.0-53.0); Hemoglobin 8.1 g/dL (13.5-17.5); Mean Corpuscular Hemoglobin 28.1 pg (28.0-32.0); Mean Corpuscular Volume 84.1 fL (80.0-100.0); Nucleated Red Blood Cells % 0.1 %
[2025-07-01 16:38] LABS: Albumin 4.6 g/dL (3.2-4.8); Alkaline Phosphatase 115 U/L (46-116); Anion Gap 8 (5-15); BUN/Creatinine Ratio 17.9 (10.0-20.0); Blood Urea Nitrogen 19 mg/dL (9-23); Calcium 9.5 mg/dL (8.7-10.4); Carbon Dioxide 25 mmol/L (20-31); Chloride 105 mmol/L (98-107); Potassium 4.7 mmol/L (3.5-5.1); Sodium 138 mmol/L (136-145); Total Protein 7.1 g/dL (5.7-8.2)
[2025-07-01 16:43] LABS: Alanine Aminotransferase < 9 U/L (7-40); Bilirubin, Total 0.2 mg/dL (0.2-1.0); Glucose 207 mg/dL (74-106)
[2025-07-01] MEDS: SODIUM CHLORIDE 0.9% 1,000 ML IV ONE (17:46)
[2025-07-01 22:40] VITALS: RESP 18
[2025-07-01 23:29] LABS: Iron 15.0 ug/dL (65-175)
[2025-07-01 23:32] VITALS: BP 137/65; PULSE 65; RESP 16; TEMP 98.2; O2SAT 97
[2025-07-01 23:32] LABS: Total Iron Binding Capacity 411.0 ug/dL (250-425)
[2025-07-02] VITALS (13 sets, daily range): BP systolic 105–169; BP diastolic 44–84; PULSE 56–65; RESP 16–24; TEMP 97.4–98.5; O2SAT 0–100
--- NOTE | 2025-07-02 00:29 | DVHHPRES ---
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 The patient has di fficulty hearing and says "I have a bad memory", but the patient was cooperative. He reports that, he has been feeling extreme fatigue, dizzy and weak since last 2 weeks. He has exertional shortness of breath, however, shortness of breaths not present at rest. He was admitted at [facility] last month due to epistaxis for 2 hours. He denies any chest pain, abdominal pain, nausea vomiting, urinary symptoms or any other complaints. The patient requested a BiPAP machine for sleep apnea. I spoke to the daughter over phone and explained the next steps to her. Past medical history:diabetes mellitus, hypertension, obstructive sleep apnea, fibromyalgia, hypothyroidism Past surgical history: None Home medicines: Probiotics, Plavix, finasteride, lamotrigine, aspirin, isosorbide dinitrate, metoprolol metformin, fluoxetine, amlodipine, simvastatin, calcium, tramadol for arthritis Allergies: Iodine contrast, azar PCP: Scheduled with PCP next week, from [place] Smoking: Never Alcohol: Never Drugs: never Lives alone in-home Daughter's contact: [phone] Code status: Full code Review of Systems Review of Systems The patient was seen and examined at the bedside. Reports feeling extreme fatigue, weakness, exertional shortness of breath and dizziness. He also has finger joint pain. No other complaints reported. Rest of the ROS is negative Allergies: Coded Allergies: Iodine (Verified Adverse Reaction, Severe, 08/15/19) PT HAD EPISODE OF ANAPHYLAXIS LEADING TO CARDIAC ARREST IN 2002 Uncoded Allergies: CHERRIES (Allergy, Unknown, 07/01/25) Medications Current Medications Medications Dose Ordered Sig/Drew Route Start Time Stop Time Status Last Admin Dose Admin Iron Sucrose 110 ml @ 110 mls/hr DAILY@1200 IV 07/02/25 12:00 07/02/25 12:59 Exam Vital Signs Vital Signs Date Time Temp Pulse Resp B/P (MAP) Pulse Ox O2 Delivery O2 Flow Rate FiO2 07/01/25 23:32 98.2 65 16 137/65 97 0.0 21 98.2 Exam Pt is lying on bed General Appearance: Alert, Oriented X3, Cooperative, Mild distress HEENT: Atraumatic, Mucous membranes moist/pink Respiratory: Clear to auscultation, Normal air movement, No added sounds Cardiovascular: Regular rate, Normal S1, Normal S2, No murmurs Abdominal/ : Active bowel sounds, Soft, no distention, no tenderness Extremities: No edema, Normal pulses, finger joint deformity,heber[place] and maryann nodes present. Skin: No Significant rash, except past surgical scars Neuro: Normal speech, sensorimotor deficits none Psych/Mental Status: Mental status NL, Mood NL Nurse was there as director intelligence analysis programs during examination Labs/Xrays Labs Test 07/01/25 20:07 07/01/25 16:07 Range/Units Troponin I High Sensitivity 13 </=54 ng/L White Blood Count 6.2 4.4-10.8 10^3/uL Red Blood Count 2.88 L 4.5-5.90 10^6/uL Hemoglobin 8.1 L 13.5-17.5 g/dL Hematocrit 24.2 L 41.0-53.0 % Mean Corpuscular Volume 84.1 80.0-100.0 fL Mean Corpuscular Hemoglobin 28.1 28.0-32.0 pg Mean Corpuscular Hemoglobin Concent 33.5 32.0-36.0 g/dL Red Cell Distribution Width 15.4 H 11.8-14.3 % Platelet Count 264 140-450 10^3/uL Mean Platelet Volume 8.6 6.9-10.8 fL Neutrophils (%) (Auto) 69.4 37.0-80.0 % Lymphocytes (%) (Auto) 14.9 10.0-50.0 % Monocytes (%) (Auto) 11.4 0.0-12.0 % Eosinophils (%) (Auto) 3.4 0.0-7.0 % Basophils (%) (Auto) 0.9 0.0-2.0 % Neutrophils # (Auto) 4.3 1.6-8.6 10 ^3/uL Lymphocytes # (Auto) 0.9 0.4-5.4 10 ^3/uL Monocytes # (Auto) 0.7 0-1.3 10 ^3/uL Eosinophils # (Auto) 0.2 0-0.8 10 ^3/uL Basophils # (Auto) 0.1 0-0.2 10 ^3/uL Nucleated Red Blood Cells 0.1 % Sodium Level 138 136-145 mmol/L Potassium Level 4.7 3.5-5.1 mmol/L Chloride Level 105 98-107 mmol/L Carbon Dioxide Level 25 20-31 mmol/L Anion Gap 8 5-15 Blood Urea Nitrogen 19 9-23 mg/dL Creatinine 1.06 0.700-1.30 mg/dL Glomerular Filtration Rate Calc 73 >90 mL/min BUN/Creatinine Ratio 17.9 10.0-20.0 Serum Glucose 207 H 74-106 mg/dL Lactic Acid Level 1.4 0.4-2.0 mmol/L Calcium Level 9.5 8.7-10.4 mg/dL Iron Level 15 L 65-175 ug/dL Total Iron Binding Capacity 411 250-425 ug/dL Percent Iron Saturation 3.6 L 20-55 % Ferritin 7.5 L 22-322 ng/mL Total Bilirubin 0.2 0.2-1.0 mg/dL Aspartate Amino Transferase (AST) 13 13-40 U/L Alanine Aminotransferase (ALT) < 9 7-40 U/L Alkaline Phosphatase 115 46-116 U/L B-Type Natriuretic Peptide 285.41 0-100 pg/mL Total Protein 7.1 5.7-8.2 g/dL Albumin 4.6 3.2-4.8 g/dL SEPSIS Sepsis Screen Date sepsis recognized/suspect: Jul 01, 2025 Time Sepsis recognized/suspect: 1518 Recent Procedure: No On Antibiotic Therapy: No Respiratory Rate >20: No Heart Rate >90: No Temp<36 C (96.8 F) or >38.3 C: No SBP <90 or MAP <65 mmHG: No New Acute Mental Status Change: No Is the patient on CPAP, BIPAP,: No Physician Orders Bipap/Cpap For Sleep Apnea (07/01/25 23:08) Iron Sucrose Complex (Venofer) (07/02/25 12:00) Sodium Chloride 0.9% (07/01/25 23:15) Stool Occult Blood (07/01/25 23:11) Urinalysis (07/01/25 23:13) Drug Screen (07/01/25 23:13) Admit (07/02/25 00:14) Notify Md Of Changes From Base (07/02/25 00:14) Chest Two Views Routine (07/02/25 00:14) Electrocardigram (07/02/25 00:14) Vital Signs Date Time Temp Pulse Resp B/P (MAP) Pulse Ox O2 Delivery O2 Flow Rate FiO2 07/01/25 23:32 98.2 65 16 137/65 97 0.0 21 98.2 07/01/25 20:18 98.2 65 16 137/64 (88) 97 98.2 Laboratory Tests Test 07/01/25 16:07 Lactic Acid Level 1.4 mmol/L (0.4-2.0) White Blood Count 6.2 10^3/uL (4.4-10.8) Medications Medications Dose Ordered Sig/Drew Route Start Time Stop Time Status Last Admin Dose Admin Sodium Chloride 1,000 ml @ 1,000 mls/hr Q1H ONCE IV 07/01/25 16:30 07/01/25 17:29 DC 07/01/25 17:46 1,000 MLS/HR Assessment/Plan Assessment/Plan #Acute normocytic normochromic anemia rule out anemia of chronic disease/ iron- deficiency anemia Hemoglobin 8.1 Iron panel sent IV iron supplementation given stool occult blood test ordered. Consult GI for possible colonoscopy if comes back positive #Uncontrolled diabetes mellitus HbA1c ordered Insulin Lantus and mild insulin sliding scale # uncontrolled Hypertension Metoprolol 25 mg p.o. daily GI prophylaxis: Pantoprazole DVT prophylaxis: SCDs Diet: Cardiac Goals of care discussed with the patient for more than 27 minutes: Full code status Case discussed with Dr. Olson, patient and RN Plan discussed with: Patient, Daughter, Other (RN) My Orders Orders - JONATHAN ROACH Procedure Category Date Status Time Admit ADMIT 07/02/25 Transmitted 00:14 Notify Of Changes MORAIMA 07/02/25 Verified From Base 00:14 Chest Two Views XY 07/02/25 Transmitted Routine 00:14 Electrocardigram EKG 07/02/25 Verified 00:14 Date of Service: Jul 02, 2025 Billing Provider: VENKAT OLSON MD Common Visit Codes: [id number] INP/OBS CARE (HIGH) Secondary Visit Codes: 94150-[id number] CARE PLAN 30 MINUTES JONATHAN ROACH Jul 02, 2025 00:29
[2025-07-02] MEDS ORDERED: DEXTROSE (50%) 50ML SYRG IV ONE (00:45)
[2025-07-02] MEDS: ACCU-CHEK COMFORT CURVE STRIP VI ONE (01:10)
[2025-07-02] MEDS: InsuLIN REG 1unit/0.01ml Soln (100units/ml) SC ONE (01:44)
--- NOTE | 2025-07-02 01:54 | DVH ---
EXAM: XY CHEST PORTABLE CLINICAL HISTORY: Shortness of breath TECHNIQUE: Single frontal view of the chest WID: COMPARISON: None FINDINGS: Lines and tubes: Prior median sternotomy and CABG. Chest: The heart size and pulmonary vasculature is within normal limits. No right pleural effusion, pneumothorax, or consolidation. Linear areas of scarring in the lung bases , greater on the left. Blunting of the left costophrenic angle. The osseous structures are grossly intact. Marked right glenohumeral arthrosis. There are multiple he aled posterior left rib fracture deformities. IMPRESSION: Blunting of the left costophrenic angle which could be scarring or small left pleural effusion. Prior median sternotomy and CABG. Otherwise no acute cardiopulmonary abnormality. Linear areas of scarring or atelectasis in the lung b ases. Marked right glenohumeral arthrosis and multiple healed posterior left rib fracture deformities.
[2025-07-02] MEDS: SODIUM CHLORIDE 0.9% 1,000 ML IV ONE (03:18)
--- NOTE | 2025-07-02 04:06 | ECG ---
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
[2025-07-02 04:40] LABS: Urine Protein, UAD Negative (Negative)
[2025-07-02 04:54] LABS: Barbiturate Scree,Urine Neg (NEGATIVE); Opiate Scree,Urine Neg (NEGATIVE); Phencyclidine Screen, Urine Neg (NEGATIVE)
[2025-07-02 04:55] LABS: Amphetamine Screen, Urine Neg (NEGATIVE); Benzodiazephine Screen, Urine Neg (NEGATIVE); Cannabinoid Screen, Urine Neg (NEGATIVE); Cocaine Screen, Urine Neg (NEGATIVE)
[2025-07-02] MEDS: PANTOPRAZOLE 40 MG TAB PO SCH (06:08)
[2025-07-02] MEDS: INSULIN LANTUS (GLARGINE) 1 /0.01ml (100units/ml) SC SCH (06:10)
[2025-07-02] MEDS: METOPROLOL TARTRATE 25 MG TAB PO SCH ×2 (08:26→21:20)
[2025-07-02] MEDS: IRON SUCROSE COMPLEX 110 ML IV SCH (12:06)
[2025-07-02] MEDS ORDERED: AMLO1TAB22 PO (14:20)
[2025-07-02] MEDS ORDERED: CLOP75TA28 PO (14:20)
--- NOTE | 2025-07-02 17:27 | DVHPN2 ---
Subjective I am assuming the care of the patient from today onwards , chart reviewed patient is baseline hemoglobin was 9.7 and today's 8.1. Patient's has a recently nasal bleed. One of the daughter at bedside one of the daughter on the speaker phone all the plan were discussed with them. 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 Medications Current Medications Medications Dose Ordered Sig/Drew Route Start Time Stop Time Status Last Admin Dose Admin Insulin Glargine 16 units QAM SC 07/02/25 07:00 Metoprolol Tartrate 25 mg DAILY PO 07/02/25 10:00 Hold 07/02/25 08:26 25 MG Pantoprazole Sodium 40 mg DAILY@0600 PO 07/02/25 06:00 07/02/25 06:08 40 MG Hydralazine HCl 10 mg Q4HPRN PRN IV 07/02/25 15:30 Laboratory Results Laboratory Tests 07/01/25 16:07 Urinalysis Test 07/02/25 03:55 Urine Color Colorless (Yellow) Urine Clarity Clear (Clear) Urine pH 7.5 (5.0-9.0) Urine Specific [place] 1.012 (1.001-1.035) Urine Protein Negative (Negative) Urine Ketones Negative (Negative) Urine Blood Negative /uL (Negative) Urine Nitrite Negative (Negative) Urine Bilirubin Negative (Negative) Urine Urobilinogen Normal mg/dL (Negative) Urine Leukocyte Esterase Negative /uL (Negative) Urine RBC 1 /hpf (0 - 3) Urine Microscopic WBC < 1 /HPF (0-3) Urine Squamous Epithelial Cells None seen /hpf (<5) Urine Bacteria None seen /hpf (None Seen) Urine Glucose 2+ mg/dL (Normal) H Assessment/Plan Assessment/Plan 74-year-old male who [facility], with a known history of CAD status post quadruple bypass, status post stent placement, diabetes mellitus type 2, hypertension, hypothyroidism, factor five laden deficiency, hypothyroidism, BPH initially presented to the hospital for abnormal lab with a hemoglobin 7.9 found to have 1. Acute symptomatic anemia without any active evidence of blood loss 2. Known CAD status post CABG, status post PCI 3. Hypertension 4. diabetes mellitus type 2 5. Dyslipidemia 6. Hypothyroidism 7. Factor five Leiden deficiency 8. BPH -transfuse 1 unit of packed RBC, repeat H&H, physical therapy evaluation and treatment -discharge plan. Plan discussed with: Patient, Daughter My Orders Orders - JARED PARKER MD Procedure Category Date Status Time Hydralazine Injection PHA 07/02/25 In Process (Apresoline Inject 15:30 Date of Service: Jul 02, 2025 Billing Provider: JARED PARKER MD Common Visit Codes: [id number] INP/OBS CARE(MOD) JARED PARKER MD Jul 02, 2025 17:27
[2025-07-03] VITALS (8 sets, daily range): BP systolic 134–181; BP diastolic 70–98; PULSE 55–69; RESP 17–22; TEMP 97.1–98.4; O2SAT 0–100
[2025-07-03] MEDS: hydrALAZINE HCL 20 MG/ML VL IV PRN
[2025-07-03 07:51] LABS: Hematocrit 32.9 % (41.0-53.0); Hemoglobin 10.8 g/dL (13.5-17.5); Mean Corpuscular Hemoglobin 27.2 pg (28.0-32.0); Mean Corpuscular Volume 83.1 fL (80.0-100.0); Nucleated Red Blood Cells % 0.2 %
[2025-07-03 08:03] LABS: Chloride 105 mmol/L (98-107); Potassium 4.1 mmol/L (3.5-5.1); Sodium 137 mmol/L (136-145)
[2025-07-03 08:04] LABS: Anion Gap 10 (5-15); Calcium 9.7 mg/dL (8.7-10.4); Carbon Dioxide 22 mmol/L (20-31)
[2025-07-03 08:09] LABS: BUN/Creatinine Ratio 19.3 (10.0-20.0); Blood Urea Nitrogen 21 mg/dL (9-23)
[2025-07-03 08:10] LABS: Magnesium 2.0 mg/dL (1.6-2.6)
[2025-07-03 08:18] LABS: Glucose 211 mg/dL (74-106)
--- NOTE | 2025-07-03 15:14 | DVHDS2 ---
Discharge Summary Date of Admission Jul 02, 2025 at 00:14 Date of Discharge: Jul 03, 2025 Labs/Diagnostic Data: Laboratory Results Test 07/03/25 11:00 07/03/25 07:20 07/03/25 05:42 07/02/25 03:55 Stool Occult Blood Negative (Negative) Stool Occult Blood Sample #3 (Negative) White Blood Count 7.3 10^3/uL (4.4-10.8) Red Blood Count 3.95 10^6/uL (4.5-5.90) Hemoglobin 10.8 g/dL (13.5-17.5) Hematocrit 32.9 % (41.0-53.0) Mean Corpuscular Volume 83.1 fL (80.0-100.0) Mean Corpuscular Hemoglobin 27.2 pg (28.0-32.0) Mean Corpuscular Hemoglobin Concent 32.8 g/dL (32.0-36.0) Red Cell Distribution Width 16.0 % (11.8-14.3) Platelet Count 284 10^3/uL (140-450) Mean Platelet Volume 8.7 fL (6.9-10.8) Neutrophils (%) (Auto) 68.5 % (37.0-80.0) Lymphocytes (%) (Auto) 14.8 % (10.0-50.0) Monocytes (%) (Auto) 12.9 % (0.0-12.0) Eosinophils (%) (Auto) 3.0 % (0.0-7.0) Basophils (%) (Auto) 0.8 % (0.0-2.0) Neutrophils # (Auto) 5.0 10 ^3/uL (1.6-8.6) Lymphocytes # (Auto) 1.1 10 ^3/uL (0.4-5.4) Monocytes # (Auto) 0.9 10 ^3/uL (0-1.3) Eosinophils # (Auto) 0.2 10 ^3/uL (0-0.8) Basophils # (Auto) 0.1 10 ^3/uL (0-0.2) Nucleated Red Blood Cells 0.2 % Sodium Level 137 mmol/L (136-145) Potassium Level 4.1 mmol/L (3.5-5.1) Chloride Level 105 mmol/L (98-107) Carbon Dioxide Level 22 mmol/L (20-31) Anion Gap 10 (5-15) Blood Urea Nitrogen 21 mg/dL (9-23) Creatinine 1.09 mg/dL (0.700-1.30) Glomerular Filtration Rate Calc 71 mL/min (>90) BUN/Creatinine Ratio 19.3 (10.0-20.0) Serum Glucose 211 mg/dL (74-106) Calcium Level 9.7 mg/dL (8.7-10.4) Magnesium Level 2.0 mg/dL (1.6-2.6) POC Glucose 242 mg/dl (70-106) Urine Color Colorless (Yellow) Urine Clarity Clear (Clear) Urine pH 7.5 (5.0-9.0) Urine Specific [place] 1.012 (1.001-1.035) Urine Protein Negative (Negative) Urine Ketones Negative (Negative) Urine Blood Negative /uL (Negative) Urine Nitrite Negative (Negative) Urine Bilirubin Negative (Negative) Urine Urobilinogen Normal mg/dL (Negative) Urine Leukocyte Esterase Negative /uL (Negative) Urine RBC 1 /hpf (0 - 3) Urine Microscopic WBC < 1 /HPF (0-3) Urine Squamous Epithelial Cells None seen /hpf (<5) Urine Bacteria None seen /hpf (None Seen) Urine Glucose 2+ mg/dL (Normal) Urine Opiates Screen Neg (NEGATIVE) Urine Fentanyl Screen Neg (NEGATIVE) Urine Barbiturates Screen Neg (NEGATIVE) Urine Phencyclidine Screen Neg (NEGATIVE) Urine Amphetamines Screen Neg (NEGATIVE) Urine Benzodiazepines Screen Neg (NEGATIVE) Urine Cocaine Screen Neg (NEGATIVE) Urine Cannabinoids Screen Neg (NEGATIVE) Test 07/01/25 20:07 07/01/25 16:07 Troponin I High Sensitivity 13 ng/L (</=54) Hemoglobin A1c 8.4 % A1C (<5.7) Lactic Acid Level 1.4 mmol/L (0.4-2.0) Iron Level 15 ug/dL (65-175) Total Iron Binding Capacity 411 ug/dL (250-425) Percent Iron Saturation 3.6 % (20-55) Ferritin 7.5 ng/mL (22-322) Total Bilirubin 0.2 mg/dL (0.2-1.0) Aspartate Amino Transferase (AST) 13 U/L (13-40) Alanine Aminotransferase (ALT) < 9 U/L (7-40) Alkaline Phosphatase 115 U/L (46-116) B-Type Natriuretic Peptide 285.41 pg/mL (0-100) Total Protein 7.1 g/dL (5.7-8.2) Albumin 4.6 g/dL (3.2-4.8) Other Laboratory Tests 07/03/25 07:20 Brief Hx & Hospital Course: 74-year-old male who is a [facility] patient, with a known history of CAD status post quadruple bypass, status post stent placement, diabetes mellitus type 2, hypertension, hypothyroidism, factor five laden deficiency, hypothyroidism, BPH initially presented to the hospital for abnormal lab with a hemoglobin 7.9 found to have acute symptomatic anemia without any active evidence of bleeding. Patient does have known history of CAD status post CABG. Patient was given 1 unit of packed RBC because of symptomatic anemia. Currently symptoms has been resolved. Patient is being discharged under stable condition with a close follow up as an outpatient with the PCP. Please follow up with GI as an outpatient for outpatient colonoscopy. Condition at Discharge: Stable Final Diagnosis/Problems List 74-year-old male who is a [facility] patient, with a known history of CAD status post quadruple bypass, status post stent placement, diabetes mellitus type 2, hypertension, hypothyroidism, factor five laden deficiency, hypothyroidism, BPH initially presented to the hospital for abnormal lab with a hemoglobin 7.9 found to have 1. Acute symptomatic anemia without any active evidence of blood loss 2. Known CAD status post CABG, status post PCI 3. Hypertension 4. diabetes mellitus type 2 5. Dyslipidemia 6. Hypothyroidism 7. Factor five Leiden deficiency 8. BPH Discharge Disposition: Home SNF Discharge Will this Physician continue t: No Discharge Instruct/Medications Diet: Cardiac 2g Na,low cholest Diet comment: 1800 ADA diet Activity: No Restrictions, As Tolerated Follow Up/Referral: Follow up with the PCP in 1-2 weeks. Medications: Resume home medications. Continued Medications: Amlodipine Besylate (Amlodipine Besylate) 5 Mg Tab 5 MG PO DAILY for 30 Days, MG Artificial Tear Solution (Artificial Tears) Tears Grisel 1 DROP EACHEYE QID, #15 ML 5 Refills Calcium Carbonate-Cholecalcife (Calcium 500 + D 500-200 mg-Unit) 1 Tab Tab 1 TAB PO, TAB Clopidogrel Bisulfate (Plavix) 75 Mg Tab 75 MG PO, TAB Clotrimazole (Clotrimazole) 1 % Cre 1 APPLIC TOP Q12HR for 30 Days, APPLIC Docusate Sodium (Docusate Sodium) 100 Mg Tab 250 MG PO DAILYP PRN for FOR CONSTIPATION, MG Finasteride (Finasteride) 5 Mg Tab 5 MG PO DAILY for 30 Days, MG Fluocinonide (Fluocinonide) 0.05 % Cre 0.05 % EX, CRE Fluocinonide (Fluocinonide) 0.05 % Oin 1 APPLIC TOP BID, #15 GRAMS 3 Refills Fluoxetine Hcl (Fluoxetine Hcl) 20 Mg Cap 20 MG PO DAILY for 30 Days, MG Isosorbide Mononitrate (Isosorbide Mononitrate Er) 30 Mg Tab 30 MG PO for 30 Days, MG Lactobacillus (Lacto-Pectin) Cap 1 OR, CAP Lamotrigine (Lamotrigine) 100 Mg Tab 1 TAB PO BID, #60 TAB Levothyroxine Sodium (Levothyroxine Sodium) 137 Mcg Tab 137 MCG PO QAM for 30 Days Metformin Hydrochloride (Metformin Hcl) 500 Mg Tab 1000 MG PO DAILY for 30 Days, MG Metoprolol Tartrate (Metoprolol Tartrate) 25 Mg Tab 25 MG PO for 30 Days, MG Multiple Vitamin (Multivitamins) Cap 1 CAP PO DAILY, #30 CAP 3 Refills [place]ud[place]-3 Fatty Acids (Fish Oil) 1,000 Mg Cap 1000 MG PO, CAP Pravastatin Sodium (Pravachol Tablet) 20 Mg Tb 40 MG PO, TAB Tamsulosin Hcl (Tamsulosin Hcl) 0.4 Mg Cap 0.4 MG PO QPM for 30 Days, MG Tramadol Hcl (Tramadol Hcl) 50 Mg Tab 50 MG PO Q6HP PRN for MILD PAIN OR TEMP>100.4, MG Witch Becky (Witch Becky) Ext 1 XX, EXT Scheduled Amlodipine Besylate (Amlodipine Besylate), 5 MG PO DAILY, (Reported) Artificial Tear Solution (Artificial Tears), 1 DROP EACHEYE QID, (Reported) Clotrimazole (Clotrimazole), 1 APPLIC TOP Q12HR, (Reported) Finasteride (Finasteride), 5 MG PO DAILY, (Reported) Fluocinonide (Fluocinonide), 1 APPLIC TOP BID, (Reported) Fluoxetine Hcl (Fluoxetine Hcl), 20 MG PO DAILY, (Reported) Lamotrigine (Lamotrigine), 1 TAB PO BID, (Reported) Levothyroxine Sodium (Levothyroxine Sodium), 137 MCG PO QAM, (Reported) Metformin Hydrochloride (Metformin Hcl), 1,000 MG PO DAILY, (Reported) Multiple Vitamin (Multivitamins), 1 CAP PO DAILY, (Reported) Tamsulosin Hcl (Tamsulosin Hcl), 0.4 MG PO QPM, (Reported) Scheduled PRN Docusate Sodium (Docusate Sodium), 250 MG PO DAILYP PRN for FOR CONSTIPATION, (Reported) Tramadol Hcl (Tramadol Hcl), 50 MG PO Q6HP PRN for MILD PAIN OR TEMP>100.4, (Reported) Miscellaneous Medications Calcium Carbonate-Cholecalcife (Calcium 500 + D 500-200 mg-Unit), 1 TAB PO, (Reported) Clopidogrel Bisulfate (Plavix), 75 MG PO, (Reported) Fluocinonide (Fluocinonide), 0.05 % EX, (Reported) Isosorbide Mononitrate (Isosorbide Mononitrate Er), 30 MG PO, (Reported) Lactobacillus (Lacto-Pectin), 1 OR, (Reported) Metoprolol Tartrate (Metoprolol Tartrate), 25 MG PO, (Reported) [place]uddy-3 Fatty Acids (Fish Oil), 1,000 MG PO, (Reported) Pravastatin Sodium (Pravachol Tablet), 40 MG PO, (Reported) Witch Becky (Witch Becky), 1 XX, (Reported) Discharge Statement: "Patient was advised to return to the ER or call 911 if any headaches, dizziness, shortness of breath, chest pain, abdominal pain, bleeding, fevers, or worsening of medical condition. Patient was counseled about treatment plan, medications, possible side effects, patientverbalized understanding. All questions were answered to the best of my ability. This discharge took greater then 30 minutes in planning, reviewing documentation, counseling the patient, and discussing with other team members." ASSESSMENT ASSESSMENT Assessment 74-year-old male who [facility], with a known history of CAD status post quadruple bypass, status post stent placement, diabetes mellitus type 2, hypertension, hypothyroidism, factor five laden deficiency, hypothyroidism, BPH initially presented to the hospital for abnormal lab with a hemoglobin 7.9 found to have 1. Acute symptomatic anemia without any active evidence of blood loss 2. Known CAD status post CABG, status post PCI 3. Hypertension 4. diabetes mellitus type 2 5. Dyslipidemia 6. Hypothyroidism 7. Factor five Leiden deficiency 8. BPH Date of Service: Jul 03, 2025 Billing Provider: JARED PARKER MD Common Visit Codes: [id number]/[id number] DISCH DAY >30min JARED PARKER MD Jul 03, 2025 15:14
== END 2025-07-03 17:00 | disposition home or self-care (01) | DRG 812 ==
LOC: ER 15:15 → OVERFLOW 07-02 00:14 → WEST WING 07-02 02:32
PROVIDERS: ATTEND Emergency Medicine
PROC: 30233N1 Transfusion of Nonautologous Red Blood Cells into Peripheral Vein, Percutaneous Approach (ICD-10-PCS; principal; 2025-07-02)
PROC: 5A09357 Assistance with Respiratory Ventilation, Less than 24 Consecutive Hours, Continuous Positive Airway Pressure (ICD-10-PCS; 2025-07-02)
PROC: 5A09357 Assistance with Respiratory Ventilation, Less than 24 Consecutive Hours, Continuous Positive Airway Pressure (ICD-10-PCS; 2025-07-03)
DX: D64.9 Anemia, unspecified (principal); D68.2 Hereditary deficiency of other clotting factors; E11.9 Type 2 diabetes mellitus without complications; N40.0 Benign prostatic hyperplasia without lower urinary tract symptoms; I10 Essential (primary) hypertension; E03.9 Hypothyroidism, unspecified; E78.5 Hyperlipidemia, unspecified; I25.10 Atherosclerotic heart disease of native coronary artery without angina pectoris; Z95.5 Presence of coronary angioplasty implant and graft; Z79.84 Long term (current) use of oral hypoglycemic drugs; Z79.899 Other long term (current) drug therapy; Z95.1 Presence of aortocoronary bypass graft
CPT/HCPCS: 36415; 71045; 80048; 80053; 80307; 81001; 82270; 82728; 82962; 83036; 83540; 83550; 83605; 83735; 83880; 84484; 85025; 86850; 86900; 86901; 86920; 93005; 94660; 96360; 97163; G0378; J1756; J1815

== ENCOUNTER 2025-11-04 12:10 | Emergency (ER) | payer OTHER ==
[~2025-11-04] VITALS: Ht 170.2 cm; Wt 77.2 kg
[~2025-11-04 12:10] MED LIST changes: +AMLO1TAB22 PO; +CLOP75TA28 PO
[2025-11-04] MEDS: SODIUM CHLORIDE 0.9% 500 ML IVB ONE (13:00)
--- NOTE | 2025-11-04 13:11 | ED.PDOC ---
Og. trauma (HPI) HPI Comments 75 y.o male with PMHx of [place] x2, HTN, HLD, and seizures, presents to the ED via EMS s/p fall injury. Patient reports he was at home sitting in a chair watching TV and woke up on the floor. Patient is unable to recall event, states he was able to get himself back up and call 911. Patient presents with a 4cm laceration to the left side of the scalp. He denies any nausea, vomiting, lightheadedness or chest pain. No blood thinner use. Chief Complaint: Fall Injury Time Seen by MD: 12:51 Primary Care Provider: JANAK Reviewed notes: Nurses Notes, Master Glazier Notes, Medications, Allergies Allergies: Coded Allergies: Iodine (Verified Adverse Reaction, Severe, 08/15/19) PT HAD EPISODE OF ANAPHYLAXIS LEADING TO CARDIAC ARREST IN 2002 Uncoded Allergies: CHERRIES (Allergy, Unknown, 07/01/25) Home Meds Reported Medications Amlodipine Besylate (Amlodipine Besylate) 5 Mg Tab, 5 MG PO DAILY for 30 Days, MG 07/02/25 Clopidogrel Bisulfate (Plavix) 75 Mg Tab, 75 MG PO, TAB 07/02/25 Witch Becky (Witch Becky) Ext, 1 XX, EXT 08/15/19 Lactobacillus (Lacto-Pectin) Cap, 1 OR, CAP 08/15/19 Clotrimazole (Clotrimazole) 1 % Cre, 1 APPLIC TOP Q12HR for 30 Days, APPLIC 08/15/19 Levothyroxine Sodium (Levothyroxine Sodium) 137 Mcg Tab, 137 MCG PO QAM for 30 Days 08/15/19 Finasteride (Finasteride) 5 Mg Tab, 5 MG PO DAILY for 30 Days, MG 08/15/19 Fluoxetine Hcl (Fluoxetine Hcl) 20 Mg Cap, 20 MG PO DAILY for 30 Days, MG 08/15/19 Fluocinonide (Fluocinonide) 0.05 % Oin, 1 APPLIC TOP BID, #15 GRAMS 3 Refills 08/15/19 Fluocinonide (Fluocinonide) 0.05 % Cre, 0.05 % EX, CRE 08/15/19 Tramadol Hcl (Tramadol Hcl) 50 Mg Tab, 50 MG PO Q6HP PRN for MILD PAIN OR TEMP>100.4, MG 08/15/19 Docusate Sodium (Docusate Sodium) 100 Mg Tab, 250 MG PO DAILYP PRN for FOR CONSTIPATION, MG 08/15/19 [place]-3 Fatty Acids (Fish Oil) 1,000 Mg Cap, 1000 MG PO, CAP 08/15/19 Lamotrigine (Lamotrigine) 100 Mg Tab, 1 TAB PO BID, #60 TAB 08/15/19 Tamsulosin Hcl (Tamsulosin Hcl) 0.4 Mg Cap, 0.4 MG PO QPM for 30 Days, MG 08/15/19 Pravastatin Sodium (PRAVACHOL TABLET) 20 Mg Tb, 40 MG PO, TAB 08/15/19 Multiple Vitamin (Multivitamins) Cap, 1 CAP PO DAILY, #30 CAP 3 Refills 08/15/19 Calcium Carbonate-Cholecalcife (Calcium 500 + D 500-200 mg-Unit) 1 Tab Tab, 1 TAB PO, TAB 08/15/19 Artificial Tear Solution (ARTIFICIAL TEARS) Tears Grisel, 1 DROP EACHEYE QID, #15 ML 5 Refills 08/15/19 Metoprolol Tartrate (Metoprolol Tartrate) 25 Mg Tab, 25 MG PO for 30 Days, MG 08/15/19 Isosorbide Mononitrate (Isosorbide Mononitrate Er) 30 Mg Tab, 30 MG PO for 30 Days, MG 08/15/19 Metformin Hydrochloride (Metformin Hcl) 500 Mg Tab, 1000 MG PO DAILY for 30 Days, MG 08/15/19 Information Source: Patient, Emergency Med Personnel Mode of Arrival: EMS Severity: Moderate Timing: Hours Duration: Since onset Location of laceration: Head Mechanism: Fall Associated signs and symtoms: Other Past Medical History PAST MEDICAL HISTORY: CAD, DM, HTN, OH, Seizures Surgical History: CABG, PTCA Family History Family History: Reviewed,noncontributory to illness Social History Smoker: Non-Smoker Alcohol: Denies ETOH Use Drugs: Denies Drug Use Lives In: Home Constitutional: denies: chills, diaphoresis, fatigue, fever, malaise, sweats, weakness, others EENTM: denies: blurred vision, double vision, ear bleeding, ear discharge, ear drainage, ear pain, ear ringing, eye pain, eye redness, hearing loss, mouth pain, mouth swelling, nasal discharge, nose bleeding, nose congestion, nose pain, photophobia, tearing, throat pain, throat swelling, voice changes, others Respiratory: denies: cough, hemoptysis, orthopnea, SOB at rest, shortness of breath, SOB with excertion, stridor, wheezing, others Cardiovascular: denies: chest pain, dizzy spells, diaphoresis, Dyspnea on exertion, edema, irregular heart beat, left arm pain, lightheadedness, palpitations, PND, syncope, others Gastrointestinal: denies: abdomen distended, abdominal pain, blood streaked bowels, constipated, diarrhea, dysphagia, difficulty swallowing, hematemesis, melena, nausea, poor appetite, poor fluid intake, rectal bleeding, rectal pain, vomiting, others Genitourinary: denies: burning, dysuria, flank pain, frequency, hematuria, incontinence, penile discharge, penile sore, pain, testicle pain, testicle swelling, urgency, others Neurological: denies: dizziness, fainting, headache, left sided numbness, left sided weakness, numbness, paresthesia, pre-existing deficit, right sided numbness, right sided weakness, seizure, speech problems, tingling, tremors, weakness, others Musculoskeletal: denies: back pain, gout, joint pain, joint swelling, muscle pain, muscle stiffness, neck pain, others Integumetry: reports: laceration; denies: bruises, change in color, change in hair/nails, dryness, lesions, lumps, rash, wounds, others Allergic/Immunocompromised: denies: Difficulty Healing, Frequent Infections, Hives, Itching, others Hematologic/Lymphatic: denies: anemia, blood clots, easy bleeding, easy bruising, swollen glands, others Endocrine: denies: excessive hunger, excessive sweating, excessive thirst, excessive urination, flushing, intolerance to cold, intolerance to heat, unexplained weight gain, unexplained weight loss, others Psychiatric: denies: anxiety, bipolar disorder, depression, hopeless, panic disorder, schizophrenia, sleepless, suicidal, others All Other Systems: Reviewed and Negative Physical Exam General Appearance: Moderate Distress HEENT: Normal ENT Inspection, Pharynx Normal, TMs Normal Neck: Full Range of Motion, Non-Tender, Normal, Normal Inspection Respiratory: Chest Non-Tender, Lungs Clear, No Accessory Muscle Use, No Respiratory Distress, Normal Breath Sounds Cardiovascular: No Edema, No JVD, No Murmur, No Gallop, Normal Peripheral Pulses, Regular Rate/Rhythm Breast Exam: Deferred Gastrointestinal: No Organomegaly, Non Tender, No Pulsatile Mass, Normal Bowel Sounds, Soft Genitalia: Deferred Pelvic: Deferred Rectal: Deferred Extremities: No calf tenderness, Normal capillary refill, Normal inspection, Normal range of motion, Non-tender, No pedal edema Musculoskeletal : Apperance: Normal Neurologic: Alert, 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 Was a procedure done?: Yes Sedation Sedation?: No Arterial Puncture Informed consent obtained: Yes Risks/benefits/alt described: Yes Laceration Repair : Location left side scalp Length 4 cm Anesthetic: Nothing Laceration Repair Prep: Saline, Betadine Laceration Repair Wound Comple: epidermis/dermis repair Laceration Repair: Otis Informed consent obtained: Yes Risks, benefits, and alternati: Yes Differential Diagnosis Multiple Trauma: Closed Head Injury, Abrasions, Contusion, Laceration X-Ray, Labs, Meds, VS Vital Signs Date Time Temp Pulse Resp B/P (MAP) Pulse Ox O2 Delivery O2 Flow Rate FiO2 11/04/25 19:26 98.0 84 16 154/64 (94) 97 98.0 11/04/25 15:15 74 18 97 Room Air 11/04/25 15:15 98.2 74 18 137/61 (86) 97 98.2 11/04/25 12:43 70 11/04/25 12:27 98.8 73 18 145/83 98 98.8 Lab Test 11/04/25 18:37 11/04/25 13:28 Range/Units Urine Color Light-yellow Yellow Urine Clarity Clear Clear Urine pH 5.0 5.0-9.0 Urine Specific [place] 1.024 1.001-1.035 Urine Protein 1+ H Negative Urine Ketones Negative Negative Urine Blood Negative Negative /uL Urine Nitrite Negative Negative Urine Bilirubin Negative Negative Urine Urobilinogen Normal Negative mg/dL Urine Leukocyte Esterase Negative Negative /uL Urine RBC 1 0 - 3 /hpf Urine Microscopic WBC 1 0-3 /HPF Urine Squamous Epithelial Cells Few <5 /hpf Urine Bacteria None seen None Seen /hpf Urine Hyaline Casts Few 0 - 2 /lpf Urine Mucus Few None Seen Urine Glucose 3+ H Normal mg/dL White Blood Count 5.9 4.4-10.8 10^3/uL Red Blood Count 3.65 L 4.5-5.90 10^6/uL Hemoglobin 7.0 *L 13.5-17.5 g/dL Hematocrit 23.8 L 41.0-53.0 % Mean Corpuscular Volume 65.2 L 80.0-100.0 fL Mean Corpuscular Hemoglobin 19.1 L 28.0-32.0 pg Mean Corpuscular Hemoglobin Concent 29.3 L 32.0-36.0 g/dL Red Cell Distribution Width 21.1 H 11.8-14.3 % Platelet Count 283 140-450 10^3/uL Mean Platelet Volume 8.3 6.9-10.8 fL Neutrophils (%) (Auto) 63.5 37.0-80.0 % Lymphocytes (%) (Auto) 22.0 10.0-50.0 % Monocytes (%) (Auto) 10.8 0.0-12.0 % Eosinophils (%) (Auto) 2.8 0.0-7.0 % Basophils (%) (Auto) 0.9 0.0-2.0 % Neutrophils # (Auto) 3.7 1.6-8.6 10 ^3/uL Lymphocytes # (Auto) 1.3 0.4-5.4 10 ^3/uL Monocytes # (Auto) 0.6 0-1.3 10 ^3/uL Eosinophils # (Auto) 0.2 0-0.8 10 ^3/uL Basophils # (Auto) 0.1 0-0.2 10 ^3/uL Nucleated Red Blood Cells 0.1 % Platelet Estimate Adequate Anisocytosis (manual) Slight Microcytosis Moderate Ovalocytes Few Schistocytes Few Sodium Level 139 136-145 mmol/L Potassium Level 4.0 3.5-5.1 mmol/L Chloride Level 103 98-107 mmol/L Carbon Dioxide Level 24 20-31 mmol/L Anion Gap 12 5-15 Blood Urea Nitrogen 23 9-23 mg/dL Creatinine 1.12 0.700-1.30 mg/dL Glomerular Filtration Rate Calc 68 >90 mL/min BUN/Creatinine Ratio 20.5 H 10.0-20.0 Serum Glucose 180 H 74-106 mg/dL Calcium Level 9.8 8.7-10.4 mg/dL Plasma/Serum Blood Alcohol < 3.0 <10 mg/dL Current Medications Medications (Trade) Dose Ordered Sig/Drew Route Start Time Stop Time Status Last Admin Sodium Chloride 500 ml @ 500 mls/hr Q1H ONCE IVB 11/04/25 13:00 11/04/25 13:59 DC 11/04/25 13:00 CLINICAL HISTORY: fall TECHNIQUE: Helical scanning was performed of the head from the skull base to the vertex. Multiplanar reconstructions were performed. This exam was performed according to our departmental dose optimization program. Up-to-date CT equipment and radiation dose reduction techniques are utilized as appropriate. IMPRESSION: NO ACUTE INTRACRANIAL ABNORMALITY SEEN. The CBC shows anemia with a hemoglobin of 7.0 and hematocrit of 23.8 The rest of the CBC is within normal limits The chemistry panel is within normal limits. Patient tolerated the otis without any difficulty The patient will be admitted at this time. The patient is being transfused with 1 unit and possibly 2 units of packed red blood cells Images Reviewed?: Images reviewed and evaluated by me Time of 1ST Reevaluation: 13:02 Reevaluation 1ST: Unchanged Patient Education/Counseling: Diagnosis, Treatment, Prognosis Family Education/Counseling: No Family Present Departure 1 Departure Time of Disposition: 21:00 Impression: Primary Impression: Severe anemia Additional Impressions: Blunt head trauma Qualified Codes: S09.8XXA - Other specified injuries of head, initial encounter Weakness Laceration of scalp Qualified Codes: S01.01XA - Laceration without foreign body of scalp, initial encounter Disposition: ADMITTED INPATIENT Admit to: Tele Condition: Fair Critical Care Note Critical Care Time?: Yes (45 min-critical care time only) Stability Stability form required: Yes Unstable for transfer: Telemetry monitoring (Telemetry monitoring required), ED Physician Assesment (Clinical assesment) Heart Score Heart Score: Heart Score Response (Comments) Value History N/A 0 EKG N/A 0 Age N/A 0 Risk Factors N/A 0 Troponin N/A 0 Total 0 I personally scribed for TAMMI PACHECO MD ([email or web address]) on 11/04/25 at 13:11. Electronically submitted by Elisa Lockett ([facility]). I personally scribed for TAMMI PACHECO MD ([email or web address]) on 11/04/25 at 14:38. Electronically submitted by Elisa Lockett ([facility]). TAMMI PACHECO MD Nov 04, 2025 13:11
[2025-11-04 13:36] LABS: Hematocrit 23.8 % (41.0-53.0)
[2025-11-04 13:38] LABS: Mean Corpuscular Hemoglobin 19.1 pg (28.0-32.0); Mean Corpuscular Volume 65.2 fL (80.0-100.0); Nucleated Red Blood Cells % 0.1 %
[2025-11-04 13:42] LABS: Chloride 103 mmol/L (98-107); Hemoglobin 7.0 g/dL (13.5-17.5); Potassium 4.0 mmol/L (3.5-5.1); Sodium 139 mmol/L (136-145)
[2025-11-04 13:43] LABS: Anion Gap 12 (5-15); Calcium 9.8 mg/dL (8.7-10.4); Carbon Dioxide 24 mmol/L (20-31)
[2025-11-04 13:48] LABS: BUN/Creatinine Ratio 20.5 (10.0-20.0); Blood Urea Nitrogen 23 mg/dL (9-23)
[2025-11-04 13:49] LABS: Glucose 180 mg/dL (74-106)
--- NOTE | 2025-11-04 13:52 | DVH ---
CLINICAL HISTORY: fall TECHNIQUE: Helical scanning was performed of the head from the skull base to the vertex. Multiplanar reconstructions were performed. This exam was performed according to our departmental dose optimization program. Up-to-date CT equipment and radiation dose reduction techniques are utilized as appropriate. CTDI 67 DLP 1328 COMPARISON: None FINDINGS: There is no evidence for acute intracranial hemorrhage, acute ischemic changes, or solid mass. There is no hydrocephalus or midline shift. There is no effacement of the cerebral sulci and basal subarachnoid cisterns. The hair-white matter differentiation is well maintained. 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 There is moderate brain volume loss and mild chronic small vessel ischemic change. The imaged paranasal sinuses are clear. IMPRESSION: NO ACUTE INTRACRANIAL ABNORMALITY SEEN.
[2025-11-04 14:25] LABS: Anisocytosis Slight
[2025-11-04 14:26] LABS: Ovalocytes FEW
[2025-11-04 18:45] LABS: Urine Protein, UAD 1+ (Negative)
[2025-11-04 22:30] VITALS: O2SAT 96
[2025-11-04 23:05] VITALS: BP 152/62; PULSE 78; RESP 19; TEMP 97.7
[2025-11-04 23:20] VITALS: BP 150/59; PULSE 80; RESP 22; TEMP 98
[2025-11-04 23:45] VITALS: BP 161/58; PULSE 82; RESP 23; TEMP 98
[2025-11-05 00:30] VITALS: BP 157/53; PULSE 90; RESP 17; TEMP 98.1
[2025-11-05 01:05] VITALS: BP 171/72; PULSE 75; RESP 23; TEMP 98
[2025-11-05 01:31] VITALS: BP 169/67; PULSE 73; RESP 23; TEMP 98; O2SAT 96
--- NOTE | 2025-11-07 10:08 | ECG ---
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
== END 2025-11-05 02:08 | disposition short-term general hospital (02) ==
LOC: ER 12:10 → EDUNIT# 12:10 → EDBD 12:10 → ER 11-05 02:08
DX: S01.01XA Laceration without foreign body of scalp, initial encounter (principal); S09.8XXA Other specified injuries of head, initial encounter; D64.9 Anemia, unspecified; R53.1 Weakness; I10 Essential (primary) hypertension; E78.5 Hyperlipidemia, unspecified; E11.9 Type 2 diabetes mellitus without complications; I25.10 Atherosclerotic heart disease of native coronary artery without angina pectoris; Z79.899 Other long term (current) drug therapy; Z95.1 Presence of aortocoronary bypass graft; Z88.8 Allergy status to other drugs, medicaments and biological substances; Z79.890 Hormone replacement therapy; Z79.84 Long term (current) use of oral hypoglycemic drugs; W19.XXXA Unspecified fall, initial encounter; Y93.89 Activity, other specified; Y92.89 Other specified places as the place of occurrence of the external cause; Y99.8 Other external cause status
CPT/HCPCS: 12002; 36415; 36430; 70450; 80048; 80320; 81001; 82947; 85025; 86850; 86900; 86901; 86920; 93005; 96360; 96361; 99291; A4649; J7040; P9016